=== PATIENT | female | born 1945 | race Caucasian/White ===

== ENCOUNTER 2019-01-15 14:28 | Emergency (ER) | payer MEDICARE ==
[~2019-01-15] VITALS: Ht 160 cm; Wt 56.2 kg
--- OUTSIDE RECORDS SUMMARY | 2019-01-15 14:40 | XMS ---
PreManage Notification: RENUKA PARMAR [employer] Officer Events No recent Security Events currently on file CRITERIA MET - [facility] CARE PROVIDERS There are no care providers on record at this time. Felecia has no Care Guidelines for this patient. Nathalie VISIT COUNT (12 MO.) [address] [place] [id number] JAMIN Redd TOTAL 3 NOTE: Visits indicate total known visits. ED/UCC VISIT TRACKING (12 MO.) 01/15/2019 14:29 [facility] [place] TYPE: Emergency COMPLAINT: - ABD PAIN/NAUSEA 09/18/2018 16:07 [employer] [facility] [facility] [place] TYPE: Emergency COMPLAINT: - ABD PAIN 06/13/2018 11:28 [employer] [facility] [place] TYPE: Emergency COMPLAINT: - HX OF PANCREATITIS DIAGNOSES: - Personal history of nicotine dependence - Epigastric pain - Nausea with vomiting, unspecified - Other chronic pancreatitis INPATIENT VISIT TRACKING (12 MO.) No inpatient visits to display in this time frame [id number]
[2019-01-15] MEDS ORDERED: ONDANSETRON ODT8 MG PO (18:21)
[2019-01-15] MEDS ORDERED: BUPRENORPHIN-N1 EACH SL (18:21)
[2019-01-15] MEDS ORDERED: METHOTREXATE2.5 MG PO (18:22)
[2019-01-15] MEDS ORDERED: SERTRALINE HCL25 MG PO (18:22)
[2019-01-15] MEDS ORDERED: FOLIC ACID1 MG PO (18:22)
== END 2019-01-15 18:24 | disposition home or self-care (01) ==
LOC: ED 14:28
DX: R10.9 Unspecified abdominal pain (principal); I10 Essential (primary) hypertension; Z88.5 Allergy status to narcotic agent; Z79.899 Other long term (current) drug therapy
CPT/HCPCS: 80053; 81001; 83690; 85025; 96374; 96375; 99284-25; J1200; J1630; J1885; J7030